=== PATIENT | male | born 1945 | race Caucasian/White ===

== ENCOUNTER 2023-11-11 04:39 | Inpatient (IN) | payer OTHER, MEDICAID ==
[~2023-11-11] VITALS: Ht 190.5 cm; Wt 99.8 kg
[2023-11-11 04:43] VITALS: BP_SYST 186; PULSE 77; RESP 18; TEMP 97.4; O2SAT 95
[2023-11-11 05:13] LABS: BASOPHILS # (AUTO) 0.1 K/uL (0.0-0.2); BASOPHILS % (AUTO) 0.8 % (0.0-2.0); EOSINOPHILS # (AUTO) 0.3 K/uL (0.0-0.4); EOSINOPHILS % (AUTO) 3.1 % (0.0-4.0); HEMATOCRIT 43.7 % (36-54); HEMOGLOBIN 14.9 g/dL (14.0-18.0); LYMPHOCYTES # (AUTO) 1.4 K/uL (1.0-5.5); LYMPHOCYTES % (AUTO) 14.7 % (20.5-51.5); MEAN CORPUSCULAR HEMOGLOBIN 30 pg (27-31); MEAN CORPUSCULAR HGB CONC 34 % (32-36); MEAN CORPUSCULAR VOLUME 87 fL (79.0-98.0); MONOCYTES # (AUTO) 0.5 K/uL (0.0-1.0); MONOCYTES % (AUTO) 5.9 % (1.7-9.3); NEUTROPHILS # (AUTO) 6.9 K/uL (1.8-7.7); NEUTROPHILS % (AUTO) 75.5 % (40.0-70.0); PLATELET COUNT (AUTO) 224 K/uL (130-430); RED BLOOD CELL COUNT(AUTO) 5.03 MIL/uL (4.2-6.2); RED CELL DISTRIBUTION WIDTH 14.9 % (9.0-15.0); WHITE BLOOD COUNT (AUTO) 9.2 K/uL (4.8-10.8)
[2023-11-11] MEDS: LABETALOL HCL 20 MG/4 ML CARTRIDGE IVP ONE (05:16)
[2023-11-11 05:19] LABS: HEMOGLOBIN A1C 6.64 % (<5.7)
[2023-11-11 05:23] LABS: ANION GAP 10 (5-15); CALCIUM 9.5 mg/dL (8.4-11.0); CARBON DIOXIDE 27 mmol/L (23-29); CHLORIDE 104 mmol/L (98-107); CREATININE 1.04 mg/dL (0.55-1.30); GLUCOSE 141 mg/dL (74-106); POTASSIUM 4.1 mmol/L (3.5-5.1); SODIUM SERUM 141 mmol/L (136-145); UREA NITROGEN, BLOOD 19 mg/dL (8-21)
[2023-11-11 05:30] LABS: CHOLESTEROL 229 mg/dL (<200); HDL CHOLESTEROL 33 mg/dL (>45); TRIGLYCERIDES 797 mg/dL (30-150)
[2023-11-11] MEDS ORDERED: iohexoL 350 mgI/mL, 100 ML INFUS..BTL IV ONE (06:07)
[2023-11-11 08:14] LABS: BILIRUBIN,URINE NEGATIVE (NEGATIVE); CLARITY/URINE CLEAR (CLEAR); COLOR,URINE YELLOW (YELLOW); GLUCOSE,URINE NEGATIVE (NEGATIVE); KETONES,URINE NEGATIVE (NEGATIVE); LEUKOCYTE ESTERASE ,URINE NEGATIVE (NEGATIVE); NITRITE, URINE NEGATIVE (NEGATIVE); PH,URINE 5.5 (5.0-8.0); PROTEIN URINE NEGATIVE (NEGATIVE); UROBILINOGEN,URINE 0.2 (0.2-1.0)
[2023-11-11 08:20] LABS: BLOOD, URINE TRACE (NEGATIVE)
[2023-11-11 08:24] LABS: BARBITURATE, URINE NEGATIVE (NEG <=200); BENZODIAZEPINE, URINE NEGATIVE (NEG <=150); CANNABINOID, URINE NEGATIVE (NEG <=50); COCAINE, URINE NEGATIVE (NEG <=150); METHAMPHETAMINES SCREEN,URINE NEGATIVE (NEG <=500); OPIATE, URINE NEGATIVE (NEG <=100); PHENCYCLIDINE SCREEN,URINE NEGATIVE (NEG <=25); URINE AMPHETAMINE NEGATIVE (NEG <=500); URINE METHADONE NEGATIVE (NEG <=200); URINE OXYCODONE SCREEN NEGATIVE (NEG <=100)
[2023-11-11 08:25] LABS: UR TRICYCLIC ANTIDEPRESSANTS NEGATIVE (NEG <=300)
[2023-11-11 08:38] LABS: BACTERIA,URINE None Seen /HPF (None Seen); WBC,URINE 0-3 /HPF (0-3)
[2023-11-11] MEDS: ASPIRIN 325 MG TABLET (ECOTRIN) PO ONE (08:57)
[2023-11-11] MEDS: FENOFIBRATE NANOCRYSTALLIZED 48 MG TABLET (TRICOR) PO ONE ×2 (11:30→19:01)
[2023-11-11] MEDS ORDERED: INSULIN REGULAR, HUMAN 100 UNITS/ML, 3 ML VIAL (humuLIN R) SUBCUT PRN (12:45)
[2023-11-11 16:45] VITALS: BP_SYST 148; PULSE 75; RESP 20; TEMP 97.1; O2SAT 96
[2023-11-11 20:00] VITALS: BP_SYST 152; PULSE 83; RESP 18; TEMP 98.8; O2SAT 94
[2023-11-11 22:38] VITALS: O2SAT 94
[2023-11-12] VITALS: BP_SYST 157; PULSE 63; RESP 17; TEMP 98.8; O2SAT 96
[2023-11-12] MEDS ORDERED: Aspirin Ec PO (07:01)
[2023-11-12] MEDS ORDERED: HYDR20VI5 IVP (07:01)
[2023-11-12] MEDS ORDERED: TRI48 PO (07:01)
[2023-11-12] MEDS ORDERED: METF-379 PO (07:01)
[2023-11-12] MEDS: ASPIRIN 81 MG TABLET(ECOTRIN) PO SCH (09:22)
[2023-11-12] MEDS: FENOFIBRATE NANOCRYSTALLIZED 48 MG TABLET (TRICOR) PO SCH (09:23)
[2023-11-12 10:35] VITALS: O2SAT 94
[2023-11-12 12:53] VITALS: BP_SYST 171; PULSE 71; RESP 18; TEMP 98.8; O2SAT 93
[2023-11-12] MEDS: hydrALAZINE HCL 20 MG/ML VIAL IVP PRN (13:16)
[2023-11-12 16:00] VITALS: BP_SYST 143; PULSE 78; RESP 18; TEMP 98.1; O2SAT 94
[2023-11-12 16:41] VITALS: BP_SYST 143; PULSE 78; RESP 18; TEMP 98.1; O2SAT 94
== END 2023-11-12 17:08 | disposition home or self-care (01) | DRG 65 ==
LOC: SED 04:39 → SMU 12:53
PROVIDERS: ADMIT Specialist; ATTEND Specialist
DX: I63.81 Other cerebral infarction due to occlusion or stenosis of small artery (principal); G81.94 Hemiplegia, unspecified affecting left nondominant side; E78.5 Hyperlipidemia, unspecified; I10 Essential (primary) hypertension; E11.9 Type 2 diabetes mellitus without complications
CPT/HCPCS: 36415; 70450; 70496; 70498; 70551; 71045; 76376; 80048; 80061; 80307; 81000; 81001; 81015; 83037; 84484; 85025; 85610; 85730; 86886; 86900; 86901; 93005; 96374; 97112-GP; 97116-GP; 97530-GP; 99291; J0360; J1815; Q9967